=== PATIENT | female | born 1995 | race Caucasian/White ===

== ENCOUNTER 2018-08-31 08:57 | Emergency (ER) | payer OTHER ==
[~2018-08-31] VITALS: Ht 170.2 cm; Wt 77.1 kg
[~2018-08-31 08:57] MED LIST: CEPH500 PO; IBUP800; IBUP800 PO; Pain Relief500 MG PO; Percocet 5-3251 EACH; RXHYD5325 PO; RXONDA4ODT MM; SERT25 PO; Verotin-Gr Cap1 EACH PO; Zofran Odt4 MG SL
[2018-08-31] MEDS ORDERED: BENZ100A PO (09:53)
[2018-08-31] MEDS ORDERED: Ultram50 MG PO (09:53)
== END 2018-08-31 10:16 | disposition home or self-care (01) ==
LOC: ER 08:57
DX: M94.0 Chondrocostal junction syndrome [Tietze] (principal); R05 Cough; F17.200 Nicotine dependence, unspecified, uncomplicated
CPT/HCPCS: 71046; 99283-25